=== PATIENT | male | born 1950 | race Caucasian/White ===

== ENCOUNTER 2023-02-27 16:29 | Emergency (ER) | payer OTHER, MEDICARE ==
[2023-02-27] MEDS ORDERED: LIDOCAINE HCL 2% JELLY 10 ML CARTRIDGE UR ONE (16:53)
[2023-02-27 17:40] VITALS: BP 118/59; PULSE 77; RESP 20; TEMP 99.1; BMI 23.1
[2023-02-27] MEDS ORDERED: CIPROFLOXACIN 500 MG TABLET (RESTRICTED TO ID) PO ONE (20:12)
[2023-02-27] MEDS ORDERED: CIPROFLOXACIN 250 MG TABLET (RESTRICTED TO ID) PO ONE (20:22)
== END 2023-02-27 20:47 | disposition home or self-care (01) ==
LOC: FER 16:29
PROC: 0T9B70Z Drainage of Bladder with Drainage Device, Via Natural or Artificial Opening (ICD-10-PCS; principal; 2023-02-27)
DX: N39.0 Urinary tract infection, site not specified (principal); R33.9 Retention of urine, unspecified
CPT/HCPCS: 81003; 81015; 87086; 87186; 99283-25